=== PATIENT | male | born 1955 | race Caucasian/White ===

== ENCOUNTER 2020-01-14 07:02 | Emergency (ER) | payer BC ==
[2020-01-14 07:20] VITALS: BP 148/89
--- NOTE | 2020-01-14 07:37 | UC ---
UC General HPI - HPI Summary HPI Summary: Patient states he has had issues with constipation in the past but never this bad. Normally just strains to get it out. Has diffuse abdominal pain - had a very small BM at 2 am with significant straining. States he ate at [employer] and thinks the chicken made him constipated Nauseated no vomiting. no fever. States his BM - no BRBPR or melena. No changes in his weight. No hx of ever having a colonoscopy Meds: reviewed - History of Current Complaint Chief Complaint: UCAbdominalPain Stated Complaint: ABD PAIN Time Seen by Provider: 01/14/20 07:27 Pain Intensity: 8 - Allergy/Home Medications Allergies/Adverse Reactions: Allergies Allergy/AdvReac Type Severity Reaction Status Date / Time No Known Allergies Allergy Verified 01/14/20 07:11 Home Medications: Home Medications Aspirin TAB* [Aspirin 325 MG TAB*] 5 tab PO PRN 01/14/20 [History] Sodium Phosphate ADULT ENEMA* [Fleet Enema*] [address] BID PRN #1 btl 01/14/20 [Rx] PMH/Surg Hx/FS Hx/Imm Hx Previously Healthy: Yes - Surgical History Surgical History: None - Social History Alcohol Use: None Substance Use Type: None Smoking Status (MU): Current Some Day Smoker Type: Cigars Review of Systems All Other Systems Reviewed And Are Negative: Yes Gastrointestinal: Positive: Abdominal Pain, Nausea Physical Exam Triage Information Reviewed: Yes Completion Of Physical Exam Limited Due To: Altered Mental Status Appearance: Other: - mild distress from pain Vital Signs: Initial Vital Signs Temp 98.7 F 01/14/20 07:12 Pulse 112 01/14/20 07:12 Resp 22 01/14/20 07:12 BP 148/89 01/14/20 07:12 Pulse Ox 97 01/14/20 07:12 Eyes: Positive: Conjunctiva Clear Neck: Positive: Supple, Nontender Respiratory: Positive: Lungs clear, Normal breath sounds Cardiovascular: Positive: Tachycardia Abdomen Description: Positive: Other: - hypoactive bowel sounds, mild distention and firm, diffusely tender. No rebound or gaurding Course/Dx - Course Course Of Treatment: This is a 64 yr old with abdominal pain Abdominal xray: No free air or obstruction Stool in ascending and transverse colon Patient declined trial of enema in urgent care - took enema home with him is in car will be caring for him Not acute abdomen Plan Patient to do enema at home Recommend starting miralax do at least 2-3 cap fulls (each with a full glass of water) until having loose stools then cut back to one cap daily Would do enema 2x/day as needed If you have worsening abdominal pain, vomiting, fever and or lightheadedness or dizziness or blood in your stools go to the ER - Diagnoses Provider Diagnosis: Constipation Discharge ED - Sign-Out/Discharge Documenting (check all that apply): Patient Departure All imaging exams completed and their final reports reviewed: Yes - Discharge Plan Condition: Stable Disposition: HOME Patient Education Materials: Constipation (ED), Fleet Enema (ED) Referrals: No Primary Care Phys,NOPCP [Primary Care Provider] - [facility] [place] [facility]ERR[facility] [Outside] Additional Instructions: Patient to do enema at home Recommend starting miralax do at least 2-3 cap fulls (each with a full glass of water) until having loose stools then cut back to one cap daily Would do enema 2x/day as needed Limit aspirin use and recommend tylenol as needed for pain If you have worsening abdominal pain, vomiting, fever and or lightheadedness or dizziness or blood in your stools go to the ER - Billing Disposition and Condition Condition: STABLE Disposition: Home
[2020-01-14] MEDS ORDERED: Sodium Phosphate ADULT ENEMA* 118 ml bottle PR ONE (08:03)
== END 2020-01-14 08:24 | disposition home or self-care (01) ==
LOC: UCCORT 07:02
DX: K59.00 Constipation, unspecified (principal); K40.90 Unilateral inguinal hernia, without obstruction or gangrene, not specified as recurrent; M16.0 Bilateral primary osteoarthritis of hip; M47.817 Spondylosis without myelopathy or radiculopathy, lumbosacral region; I87.8 Other specified disorders of veins; R11.0 Nausea; R10.84 Generalized abdominal pain; Z72.0 Tobacco use
CPT/HCPCS: 74019; 99202; A9270-GY; G0463